=== PATIENT | female | born 1980 | race Caucasian/White ===

== ENCOUNTER 2020-08-18 10:34 | Emergency (ER) | payer OTHER ==
[2020-08-18] MEDS ORDERED: MEDROL 4MG DOSEP4 MG PO (12:22)
[2020-08-18] MEDS ORDERED: NORCO 5-325 TA1 EACH PO (12:22)
[2020-08-18] MEDS ORDERED: ROBAXIN750 MG PO (12:22)
[2020-08-18] MEDS ORDERED: NAPROXEN500 MG PO (12:22)
== END 2020-08-18 12:33 | disposition home or self-care (01) ==
LOC: FER 10:34
DX: S39.012A Strain of muscle, fascia and tendon of lower back, initial encounter (principal); X50.1XXA Overexertion from prolonged static or awkward postures, initial encounter
CPT/HCPCS: 99283

== ENCOUNTER 2020-12-16 11:03 | Emergency (ER) | payer OTHER ==
[~2020-12-16 11:03] MED LIST: MEDROL 4MG DOSEP4 MG PO; NAPROXEN500 MG PO; NORCO 5-325 TA1 EACH PO; ROBAXIN750 MG PO
[2020-12-16] MEDS ORDERED: CLOTRIMAZOLE 321 GM TOP (13:07)
== END 2020-12-16 13:28 | disposition home or self-care (01) ==
LOC: FER 11:03
DX: B35.9 Dermatophytosis, unspecified (principal); I10 Essential (primary) hypertension; F17.210 Nicotine dependence, cigarettes, uncomplicated
CPT/HCPCS: 99282